=== PATIENT | female | born 1990 | race Caucasian/White ===

== ENCOUNTER 2017-03-10 19:25 | Emergency (ER) | payer MEDICARE, OTHER ==
[~2017-03-10] VITALS: Ht 149.9 cm; Wt 74.8 kg
--- NOTE | ~2017-03-10 | CR157 ---
[facility] A Service of [facility] RADIOLOGY TEXT RESULTS PATIENT: MARIA DEL CARMEN GUALLPA LOCATION: CFTX : 89 UNIT #: [id number] AGE: [address]: Sharyn Davies APRN SEX: F ORDER DR: [id number] [facility] [address] [place], [place] [address] [id number] E MR#: [id number] Acc #: [id number] NAME: MARIA DEL CARMEN GUALLPA : 1990 SEX: F STUDY DATE/TIME: 03/10/2017 21:55 UNIT: [facility] ROOM: STUDY DESCRIPTION: CR Humerus Min 2 View Rt Attending Physician: Sharyn Davies A.P.R.N. Ordering Physician: Sharyn Davies A.P.R.N. Primary Care Physician: Rasheed Brown M.D. MEDICAL IMAGING REPORT This report is preliminary unless electronic signature is present EXAM Right humerus, 03/10. INDICATIONS Pain and laceration after being bitten by a dog today. FINDINGS Two views of the right humerus were obtained. There is no fracture or malalignment. There are no radiopaque foreign bodies. IMPRESSION Negative exam. No fracture or radiopaque foreign body identified. Dictated by... Narciso Vigil Jr., M.D. THIS IS AN ELECTRONICALLY VERIFIED REPORT Narciso Vigil Jr., M.D. at 03/11/2017 10:02 AM ONEIDA/adrien TD: 03/10/2017 23:45 JOB #: [id number] MEDICAL IMAGING REPORT Page 1 of 1 COPY
[~2017-03-10 19:25] MED LIST: AMOXICILLIN PO; AUGMENTIN875 MG PO; BACLOFEN10 MG PO; BIRTH CONTROL PILL PO; DEPO-PROVER150 MG/ML INJ; FLEXERIL10 MG PO; FLOXIN10 ML OT; LIDODERM30 EA TOP; LORTAB 10-5001 EACH PO; LORTAB 5/500 TA1 TA1 PO; NAPROXEN PO; NO MEDICATIONS; PHENERGAN PO; PHENERGAN12.5 MG PO; PRENATAL VITAMI1 TA3 PO; ULTRAM PO; ZANAFLEX PO; ZITHROMAX PO; ZOFRANODT PO
== END 2017-03-10 23:25 | disposition home or self-care (01) ==
LOC: CED 19:25 → CFTX 19:25
DX: S41.151A Open bite of right upper arm, initial encounter (principal); Z23 Encounter for immunization; W54.0XXA Bitten by dog, initial encounter; Y92.009 Unspecified place in unspecified non-institutional (private) residence as the place of occurrence of the external cause
CPT/HCPCS: 73060; 90471; 90715; 99283